=== PATIENT | male | born 1995 | race Caucasian/White ===

== ENCOUNTER 2022-12-08 20:36 | Emergency (ER) | payer MEDICAID, OTHER ==
[~2022-12-08] VITALS: Ht 180.3 cm; Wt 72.7 kg
[~2022-12-08 20:36] MED LIST: ALBUTEROL INHALER
[2022-12-08 20:53] VITALS: TEMP 99.2
[2022-12-08 21:27] LABS: COVID AG,FIA SOURCE NASAL SWAB
[2022-12-08 21:33] VITALS: BP 118/56; PULSE 54; RESP 16
[2022-12-08 21:57] LABS: INFLUENZA TYPE A NEGATIVE FOR TYPE A (NEGATIVE); INFLUENZA TYPE B NEGATIVE FOR TYPE B (NEGATIVE); SARS-COV2 (COVID) ANTIGEN,FIA Negative (Negative)
== END 2022-12-08 23:02 | disposition home or self-care (01) ==
LOC: EMS 20:36
DX: R04.2 Hemoptysis (principal); R05.9 Cough, unspecified; J45.909 Unspecified asthma, uncomplicated
CPT/HCPCS: 71045; 87804; 99284

== ENCOUNTER 2022-12-11 18:11 | Emergency (ER) | payer MEDICAID ==
[~2022-12-11] VITALS: Ht 180.3 cm; Wt 67.3 kg
[2022-12-11] MEDS ORDERED: IOHEXOL 350 MG/ML 100 ML VIAL ONE (20:54)
[2022-12-11] MEDS ORDERED: SODIUM CHLORIDE 0.9% 100 ML ONE (20:54)
[2022-12-11 21:13] LABS: BASOPHILS % (AUTO) 0.4 % (0.0-2.0); HEMATOCRIT 44.4 % (41-53); HEMOGLOBIN 14.9 g/dL (13.5-17.5); LYMPHOCYTES # (AUTO) 1.7 K/uL (1.0-4.8); LYMPHOCYTES % (AUTO) 18.8 % (22.0-44.0); MEAN CORPUSCULAR HEMOGLOBIN 31.7 pg (26.0-34.0); MEAN CORPUSCULAR HGB CONC 33.7 G/dL (31.0-37.0); MEAN CORPUSCULAR VOLUME 94 fL (80-100); MONOCYTES % (AUTO) 11.1 % (2.0-9.0); NEUTROPHILS # (AUTO) 6.2 K/uL (1.8-7.7); NEUTROPHILS % (AUTO) 68.7 % (40.0-70.0); PLATELET COUNT (AUTO) 216 K/uL (150-450); RED BLOOD CELL COUNT(AUTO) 4.72 MIL/uL (4.50-5.90); RED CELL DISTRIBUTION WIDTH 14.4 % (11.5-14.5)
[2022-12-11 21:25] LABS: ANION GAP 9 mmol/L (8-16); CALCIUM, TOTAL 8.7 mg/dL (8.8-10.5); CARBON DIOXIDE 25 mmol/L (22-29); CHLORIDE 105 mmol/L (98-107); CREATININE 0.82 mg/dL (0.60-1.30); GLOMERULAR FILTR. RATE CALC > 60 mL/min (>60); GLUCOSE,RANDOM 110 mg/dL (70-110); POTASSIUM 3.4 mmol/L (3.5-5.1); SODIUM SERUM 139 mmol/L (136-145); UREA NITROGEN, BLOOD 13 mg/dL (7-18)
[2022-12-11 21:31] LABS: ALANINE AMINOTRANSFERASE 16 U/L (12-78); ALBUMIN 3.6 g/dL (3.4-5.0); ALKALINE PHOSPHATASE 59 U/L (46-116); ASPARTATE AMINOTRANSFERASE 25 U/L (15-37); BILIRUBIN,TOTAL 0.4 mg/dL (0.1-1.0); TOTAL PROTEIN, SERUM 6.6 g/dL (6.4-8.2)
[2022-12-12 00:48] LABS: INR 1.1 (0.9-1.1); PROTHROMBIN TIME 11.3 SEC (9.4-11.6)
[2022-12-12 02:00] VITALS: TEMP 98.2
[2022-12-12 04:20] VITALS: BP 119/70; PULSE 68; RESP 16
== END 2022-12-12 04:24 | disposition short-term general hospital (02) ==
LOC: EMS 18:12
DX: R04.2 Hemoptysis (principal); R05.9 Cough, unspecified; J45.909 Unspecified asthma, uncomplicated
CPT/HCPCS: 99285; 71260; 71045; 80053; 85025; 85610; 36415; Q9967; J7050